=== PATIENT | female | born 1955 | race African-American/Black ===

== ENCOUNTER → 2017-01-29 | Outpatient (CLI) | payer OTHER ==
[~2017-01-29] MED LIST: SODIUM CHLORIDE 0.9% 10ML VIAL ONE
== END | disposition home or self-care (01) ==
LOC: NM 07:28
PROVIDERS: ATTEND Surgery
DX: K85.10 Biliary acute pancreatitis without necrosis or infection (principal)
CPT/HCPCS: 78227; A4216; A9537

== ENCOUNTER → 2017-07-17 | Day surgery (SDC) | payer OTHER ==
[~2017-07-17] VITALS: Ht 161.3 cm; Wt 93.9 kg
[~2017-07-17] MED LIST changes: +ALBU90AE IH; +AMLO2.5T45 PO; +BUPIVACAINE HCL/PF 0.5% (5MG/ML) 10ML ONE; +CEFAZOLIN SODIUM 1000MG/VIAL ONE; +CHOL200010 PO; +CYAN50005 PO; +DEXAMETHASONE 4MG/ML 1ML VIAL ONE; +FENTANYL CITRATE/PF 50MCG/ML 2ML VIAL IV PRN; +FENTANYL CITRATE/PF 50MCG/ML 2ML VIAL ONE; +GLYCOPYRROLATE 0.2 MG/ML 2ML VIAL ONE; +HYDROCODONE/ACETAMINOPHEN 5/325MG TABLET PO PRN; +LACTATED RINGERS 1,000 ML IV SCH; +LIDOCAINE HCL/PF 1% 10 MG/ML 5ML VIAL ONE; +LORA1TAB PO; +LOSA100T14 PO; +MEPERIDINE HCL/PF 25MG/ML CPJ IV PRN; +METOCLOPRAMIDE HCL 10MG/2ML VIAL ONE; +MIDAZOLAM HCL 2 MG/2 ML VIAL ONE; +MORPHINE SULFATE 2 MG/ML CPJ (NOT FOR IM USE) IV PRN; +NEOSTIGMINE METHYLSULFATE 1MG/ML 10 ML VIAL ONE; +ONDANSETRON HCL 4MG/2ML VIAL ONE; +PANT40TA4 PO; +PHENYLEPHRINE HCL 10 MG/ML 1ML (IV VIAL) IV ONE; +PROPOFOL 200MG/20ML VIAL IV ONE; +ROCURONIUM BROMIDE 10MG/ML VIAL 5ML IV ONE; +SKIN ADHESIVE 0.7 GM EA TOP ONE; +SODIUM CHLORIDE 0.9% 1,000 ML IV ONE; -SODIUM CHLORIDE 0.9% 10ML VIAL ONE; +SPIR25TA4 PO
[2017-07-17] MEDS: MEPERIDINE HCL/PF 25MG/ML CPJ IV PRN ×2 (11:20→12:39)
[2017-07-17 12:39] VITALS: BP 135/90
[2017-07-17] MEDS: ONDANSETRON HCL 4MG/2ML VIAL IV PRN ×2 (13:32→13:54)
== END | disposition home or self-care (01) ==
LOC: OR 06:24
PROVIDERS: ATTEND Surgery
DX: K80.10 Calculus of gallbladder with chronic cholecystitis without obstruction (principal); K21.9 Gastro-esophageal reflux disease without esophagitis; D64.89 Other specified anemias; I10 Essential (primary) hypertension; F41.8 Other specified anxiety disorders; M17.0 Bilateral primary osteoarthritis of knee; E66.9 Obesity, unspecified; E78.4 Other hyperlipidemia; Z68.32 Body mass index [BMI] 32.0-32.9, adult; Z79.899 Other long term (current) drug therapy
CPT/HCPCS: 47562; 88304; G0168; J0690; J1100; J2175; J2250; J2370; J2405; J2710; J2765; J3010; J3490; J7030; J7120; J2704

== ENCOUNTER → 2021-11-30 | Outpatient (CLI) | payer MEDICARE, OTHER ==
[~2021-11-30] MED LIST changes: +BARIUM SULFATE 176 GM SUSP.RECON ONE; -BUPIVACAINE HCL/PF 0.5% (5MG/ML) 10ML ONE; -CEFAZOLIN SODIUM 1000MG/VIAL ONE; -DEXAMETHASONE 4MG/ML 1ML VIAL ONE; +EZ-HD SUSPENSION(BARIUM SULFATE 340GM) PO ONE; -FENTANYL CITRATE/PF 50MCG/ML 2ML VIAL IV PRN; -FENTANYL CITRATE/PF 50MCG/ML 2ML VIAL ONE; -GLYCOPYRROLATE 0.2 MG/ML 2ML VIAL ONE; -HYDROCODONE/ACETAMINOPHEN 5/325MG TABLET PO PRN; -LACTATED RINGERS 1,000 ML IV SCH; -LIDOCAINE HCL/PF 1% 10 MG/ML 5ML VIAL ONE; -LOSA100T14 PO; +LOSA100T32 PO; -MEPERIDINE HCL/PF 25MG/ML CPJ IV PRN; -METOCLOPRAMIDE HCL 10MG/2ML VIAL ONE; -MIDAZOLAM HCL 2 MG/2 ML VIAL ONE; -MORPHINE SULFATE 2 MG/ML CPJ (NOT FOR IM USE) IV PRN; -NEOSTIGMINE METHYLSULFATE 1MG/ML 10 ML VIAL ONE; -ONDANSETRON HCL 4MG/2ML VIAL ONE; -PANT40TA4 PO; +PANT40TA51 PO; -PHENYLEPHRINE HCL 10 MG/ML 1ML (IV VIAL) IV ONE; -PROPOFOL 200MG/20ML VIAL IV ONE; -ROCURONIUM BROMIDE 10MG/ML VIAL 5ML IV ONE; -SKIN ADHESIVE 0.7 GM EA TOP ONE; -SODIUM CHLORIDE 0.9% 1,000 ML IV ONE; -SPIR25TA4 PO; +SPIR25TA6 PO
== END | disposition home or self-care (01) ==
LOC: RAD 09:35
PROVIDERS: ATTEND Internal Medicine Gastroenterology
DX: Z48.811 Encounter for surgical aftercare following surgery on the nervous system (principal); K21.9 Gastro-esophageal reflux disease without esophagitis; R10.9 Unspecified abdominal pain; Z98.84 Bariatric surgery status
CPT/HCPCS: 74246